=== PATIENT | male | born 1960 | race Caucasian/White ===

== ENCOUNTER 2016-05-25 07:17 | Emergency (ER) | payer BC ==
[~2016-05-25] VITALS: Ht 175.3 cm; Wt 94.4 kg
[~2016-05-25 07:17] MED LIST: ALBU8I INH; AMLO2.5T PO; AMLO5TAB22 PO; MONT10TA2 PO; TEST1INJ3 IM
[2016-05-25 07:26] VITALS: BP 151/108; PULSE 110; RESP 18; TEMP 98.3; O2SAT 100
[2016-05-25] MEDS ORDERED: LORazepam 2 MG/ML VIAL IV PUSH ONE (07:45)
--- NOTE | 2016-05-25 07:47 | PD ---
HPI . Hypertension Chief Complaint: Hypertension Time Seen by Provider: 07:34 Travel History International Travel<30 days: No Contact w/Intl Traveler<30days: No History of Present Illness HPI Patient presents with the chief complaint of high blood pressure. He states that he can feel his heart beating on his body. This happens to him periodically. It happened during the middle of the night last night. He took an extra half dose of lisinopril. He presents this morning complaining with continued symptoms. He denies chest pain, headache, shortness of breath, peripheral edema. PFSH Past Medical History Diminished Hearing: No Hypertension: Yes Respiratory: Yes (HX OF PE) Past Surgical History Other Surgery: Yes (big toe joint replacment bilat) Social History Alcohol Use: Yes (6 PACK A DAY) Tobacco Use: No Substance Use: No Allergies-Medications (Allergen,Severity, Reaction): Coded Allergies: No Known Allergies (Unverified , 12/01/12) Reported Meds & Prescriptions Reported Meds & Active Scripts Active Metoprolol Succinate ER 24 HR (Metoprolol Succinate) 25 Mg Tab 12.5 Mg PO DAILY Reported Garlic 400 Mg Tab Aspirin 325 Mg Tab 325 Mg PO TWICE WEEKLY Hydrocodone-Acetaminophen 10-325 mg Tab 1 Tab PO Q6H PRN Lisinopril 40 Mg Tab 40 Mg PO DAILY Review of Systems Except as stated in HPI: all other systems reviewed are Neg General / Constitutional: No: Fever, Chills Eyes: No: Blurred Vision HENT: No: Headaches Cardiovascular: Positive: Palpitations, No: Chest Pain or Discomfort Respiratory: No: Shortness of Breath Musculoskeletal: Positive: Pain (chronic low back pain), No: Edema Physical Exam Narrative GENERAL: Awake and alert and in no acute distress. SKIN: Warm and dry. HEAD: Atraumatic. Normocephalic. EYES: Pupils equal and round. ENT: No nasal bleeding or discharge. Mucous membranes pink and moist. NECK: Trachea midline. Neck is supple. CARDIOVASCULAR: Regular rate and rhythm. Heart sounds are normal. RESPIRATORY: No accessory muscle use. Lungs are clear with full air movement throughout. GASTROINTESTINAL: Abdomen soft, non-tender, nondistended. MUSCULOSKELETAL: No obvious deformities. No edema. NEUROLOGICAL: Awake and alert. No obvious cranial nerve deficits. Motor grossly within normal limits. Normal speech. PSYCHIATRIC: Appropriate mood and affect; insight and judgment normal. Data Data Last Documented VS Vital Signs Date Time Temp Pulse Resp B/P Pulse Ox O2 Delivery O2 Flow Rate FiO2 05/25/16 09:13 88 18 128/84 98 Room Air 05/25/16 07:26 98.3 Orders Lorazepam Inj (Ativan Inj) (05/25/16 07:45) Basic Metabolic Panel (Bmp) (05/25/16 07:50) Ckmb (Isoenzyme) Profile (05/25/16 07:50) Complete Blood Count With Diff (05/25/16 07:50) D-Dimer (05/25/16 07:50) Troponin I (05/25/16 07:50) Chest, Single Ap (05/25/16 07:50) Ecg Monitoring (05/25/16 07:50) Iv Access Insert/Monitor (05/25/16 07:50) Oximetry (05/25/16 07:50) Sodium Chloride 0.9% Flush (Ns Flush) (05/25/16 08:00) CKMB (05/25/16 08:20) CKMB% (05/25/16 08:20) Labs Laboratory Tests Test 05/25/16 08:20 White Blood Count 10.6 TH/MM3 Red Blood Count 5.01 MIL/MM3 Hemoglobin 16.9 GM/DL Hematocrit 49.8 % Mean Corpuscular Volume 99.3 FL Mean Corpuscular Hemoglobin 33.6 PG Mean Corpuscular Hemoglobin 33.8 % Concent Red Cell Distribution Width 11.3 % Platelet Count 182 TH/MM3 Mean Platelet Volume 8.0 FL Neutrophils (%) (Auto) 85.8 % Lymphocytes (%) (Auto) 6.9 % Monocytes (%) (Auto) 3.2 % Eosinophils (%) (Auto) 0.8 % Basophils (%) (Auto) 3.3 % Neutrophils # (Auto) 9.1 TH/MM3 Lymphocytes # (Auto) 0.7 TH/MM3 Monocytes # (Auto) 0.3 TH/MM3 Eosinophils # (Auto) 0.1 TH/MM3 Basophils # (Auto) 0.4 TH/MM3 CBC Comment DIFF FINAL Differential Comment D-Dimer Quantitative (PE/DVT) 0.46 MG/L FEU Sodium Level 136 MEQ/L Potassium Level 4.2 MEQ/L Chloride Level 103 MEQ/L Carbon Dioxide Level 24.1 MEQ/L Anion Gap 9 MEQ/L Blood Urea Nitrogen 9 MG/DL Creatinine 0.79 MG/DL Estimat Glomerular Filtration 103 ML/MIN Rate Random Glucose 143 MG/DL Calcium Level 8.9 MG/DL Total Creatine Kinase 102 U/L Creatine Kinase MB LESS THAN 0.5 NG/ML Troponin I LESS THAN 0.02 NG/ML MDM Medical Decision Making Medical Screen Exam Complete: Yes Emergency Medical Condition: Yes Medical Record Reviewed: Yes (the patient generally comes in for treatment of low back pain.) Interpretation(s) EKG shows a sinus rhythm. Ventricular rate is 102. The computer reads the EKG as possible acute lateral infarct. However, this EKG is unchanged from previous. Differential Diagnosis Differential diagnosis of palpitations includes but is not limited to anxiety, SVT, aVF with RVR, VT, sinus tachycardia Narrative Course Patient presents stating that he can feel his heart beat in his body. I will give him a dose of Ativan and observe him. The patient visibly looks better following the Ativan. He states that he is no longer feeling his heart beat in his body. CBC & BMP Diagram 05/25/16 08:20 Cardiac enzymes are negative. CXR interpretation: "No acute cardiopulmonary abnormality is identified." The chest x-ray was independently viewed by me. D-dimer is normal. Diagnosis Primary Impression: Hypertension Qualified Code: I10 - Essential hypertension Referrals: Adams Burger MD PhD 1 week Patient Instructions: Chronic Hypertension (DC), General Instructions Additional Instructions: Continue your lisinopril. Add metoprolol. Keep a log of your blood pressures and take this with you to see your doctor next week in follow-up. Scripts Metoprolol Succinate ER 24 HR 25 Mg Tab12.5 Mg PO DAILY #30 TAB Ref 0 Prov:Marci Calix MD 05/25/16 Disposition: DISCHARGE HOME Condition: Stable Marci Calix MD May 25, 2016 07:46
[2016-05-25 07:51] VITALS: O2SAT 98
[2016-05-25] MEDS ORDERED: LISI40TA PO (07:56)
[2016-05-25] MEDS ORDERED: HYDR-3583 PO (07:56)
[2016-05-25] MEDS ORDERED: ASPI325T PO (07:56)
[2016-05-25] MEDS ORDERED: GARL400T (07:56)
[2016-05-25] MEDS ORDERED: SODIUM CHLORIDE 0.9% FLUSH 5 ML FLUSH IVF PRN (08:00)
[2016-05-25 08:31] LABS: AUTOMATED NEUTROPHIL # 9.1 TH/MM3 (1.8-7.7); BASOPHIL # 0.4 TH/MM3 (0-0.2); BASOPHIL % 3.3 % (0.0-2.0); EOSINOPHIL # 0.1 TH/MM3 (0-0.4); EOSINOPHIL % 0.8 % (0.0-4.0); HEMATOCRIT 49.8 % (39.0-51.0); HEMO FLAGS DIFF FINAL; LYMPH % 6.9 % (9.0-44.0); LYMPHOCYTE # 0.7 TH/MM3 (1.0-4.8); MEAN CELL VOLUME 99.3 FL (80.0-100.0); MEAN CORPUSCULAR HEMOGLOBIN 33.6 PG (27.0-34.0); MEAN CORPUSCULAR HGB CONC 33.8 % (32.0-36.0); MONO % 3.2 % (0.0-8.0); NEUT % 85.8 % (16.0-70.0); PLATELET COUNT 182 TH/MM3 (150-450); RED BLOOD COUNT 5.01 MIL/MM3 (4.50-5.90); RED CELL DISTRIBUTION WIDTH 11.3 % (11.6-17.2); WHITE BLOOD COUNT 10.6 TH/MM3 (4.0-11.0)
[2016-05-25] MEDS ORDERED: METO25TA6 PO (08:35)
[2016-05-25 08:40] LABS: CHLORIDE 103 MEQ/L (98-107); POTASSIUM 4.2 MEQ/L (3.5-5.1); SODIUM (NA) 136 MEQ/L (136-145)
[2016-05-25 08:43] LABS: ANION GAP 9 MEQ/L (5-15); BICARBONATE 24.1 MEQ/L (21.0-32.0); BLOOD UREA NITROGEN 9 MG/DL (7-18)
[2016-05-25 08:46] LABS: GLOMERULAR FILTRATION RATE 103 ML/MIN (>89)
[2016-05-25 08:49] LABS: CREATINE KINASE 102 U/L (39-308)
[2016-05-25 09:02] LABS: CKMB LESS THAN 0.5 NG/ML (0.5-3.6)
[2016-05-25 09:13] VITALS: BP 128/84; PULSE 88; RESP 18; O2SAT 98
--- NOTE | 2016-05-25 09:15 | RADHPO ---
EXAM DATE/TIME: 05/25/2016 07:57 [facility] COMPARISON: CHEST PA & LAT, December 19, 2013, 10:53. INDICATIONS : Hypertension. Heart palpitations. MEDICAL HISTORY : Hypertension. Deep venous thrombosis. SURGICAL HISTORY : None. ENCOUNTER: Initial ACUITY: 2 days PAIN SCORE: 0/10 LOCATION: chest FINDINGS: Portable AP view of the chest demonstrates a normal-sized cardiac silhouette. No effusion, consolidat ion, or pneumothorax is visualized. The bones and soft tissues demonstrate no acute abnormality. CONCLUSION: No acute cardiopulmonary abnormality is identified. Bret Bermudez MD on May 25, 2016 at 9:11 Board Certified Radiologist. This report was verified electronically.
[2016-05-25] MEDS ORDERED: LORA-475 PO (09:37)
--- NOTE | 2016-05-26 07:08 | EKG ---
Date Performed: 05/25/2016 Time Performed: 07:29:46 PTAGE: 55 years EKG: CONSIDER ACUTE ST ELEVATION VT Sinus tachycardia Short OK interval Inferior ST elev ation, CONSIDER ACUTE INFARCT Abnormal ECG PREVIOUS TRACING : 12/19/2013 11.52 DOCTOR: Barney Alvarez Interpretating Date/Time 05/26/2016 07:06:30
== END 2016-05-25 09:48 | disposition home or self-care (01) ==
LOC: PHED 07:17
DX: I10 Essential (primary) hypertension (principal); R94.31 Abnormal electrocardiogram [ECG] [EKG]; Z86.711 Personal history of pulmonary embolism
CPT/HCPCS: 71010; 80048; 82550; 82552; 84484; 85025; 85379; 93005; 96374; 99284; J2060

== ENCOUNTER 2017-01-10 15:37 | Emergency (ER) | payer BC ==
[~2017-01-10 15:37] MED LIST changes: -ALBU8I INH; -AMLO2.5T PO; -AMLO5TAB22 PO; +ASPI325T PO; +GARL400T; +HYDR-3583 PO; +LISI40TA PO; +LORA-475 PO; +METO25TA6 PO; -MONT10TA2 PO; -TEST1INJ3 IM
[2017-01-10] MEDS ORDERED: SODIUM CHLORIDE 0.9% FLUSH 10 ML FLUSH IVF PRN (16:00)
[2017-01-10 16:13] VITALS: BP 168/99; PULSE 118; RESP 19; TEMP 99.1; O2SAT 97
[2017-01-10] MEDS ORDERED: ASPIRIN 81 MG CHEW TAB CHEW ONE (16:15)
[2017-01-10] MEDS ORDERED: LORazepam 2 MG/ML VIAL IV PUSH ONE (16:15)
--- NOTE | 2017-01-10 16:15 | PD ---
HPI Chief Complaint: Hypertension Time Seen by Provider: 16:00 Travel History International Travel<30 days: No Contact w/Intl Traveler<30days: No Traveled to known affect area: No History of Present Illness HPI 56-year-old male with history of hypertension presents to the emergency department with reports of pressure type headache, and palpitations which she felt were a result of his blood pressure being elevated. Patient normally currently takes metoprolol, lisinopril, and amlodipine once daily in the morning. Patient states a history of waking up from a nap prior to going to work, when he felt this pressure in his head and some palpitations. He denies chest pain, nausea, vomiting, or other symptoms. Patient states he took an extra dose of his metoprolol but his blood pressure when he checked it was 186/110. Pulse is noted to be in the 120s and regular. Patient states no history of heart attack, and reportedly had a normal stress test in the last 6 months. Patient is under a tremendous amount of stress lately, and admits to drinking 8-12 beers daily for years. Patient denies withdrawal from alcohol, but states he hasn't ever not drank. He is not intoxicated at this time. Patient denies any significant pain at time of exam. He has no known drug allergies. PFSH Past Medical History Hx Anticoagulant Therapy: No Cardiovascular Problems: Yes Diminished Hearing: No Deep Vein Thrombosis: Yes Hypertension: Yes Respiratory: Yes (HX OF PE) Past Surgical History Other Surgery: Yes (big toe joint replacment bilat) Social History Alcohol Use: Yes (6 PACK A DAY or more) Tobacco Use: No Substance Use: No Allergies-Medications (Allergen,Severity, Reaction): Coded Allergies: No Known Allergies (Unverified , 12/01/12) Reported Meds & Prescriptions Reported Meds & Active Scripts Active Ativan (Lorazepam) 2 Mg Tab 2 Mg PO DAILY PRN Metoprolol Succinate ER 24 HR (Metoprolol Succinate) 25 Mg Tab 12.5 Mg PO DAILY Reported Aspirin 325 Mg Tab 325 Mg PO TWICE WEEKLY Hydrocodone-Acetaminophen 10-325 mg Tab 1 Tab PO Q6H PRN Lisinopril 40 Mg Tab 40 Mg PO DAILY Review of Systems Except as stated in HPI: all other systems reviewed are Neg General / Constitutional: No: Fever Eyes: No: Visual changes HENT: No: Headaches Cardiovascular: Positive: Chest Pain or Discomfort (pressure only no pain), Tachycardia, No: Palpitations, Irregular Rhythm, Diaphoresis, Syncope, Dyspnea on exertion, Varicosities, Edema, Cyanosis, Varicosities, Phlebitis, Claudication Respiratory: No: Cough, Shortness of Breath, Wheezing Gastrointestinal: No: Nausea, Vomiting, Diarrhea, Abdominal Pain Genitourinary: No: Dysuria Musculoskeletal: No: Pain Skin: No Rash Neurologic: No: Weakness Psychiatric: No: Depression Endocrine: No: Polydipsia Hematologic/Lymphatic: No: Easy Bruising Physical Exam Narrative GENERAL: Patient appears in no acute distress. SKIN: Warm and dry. Normal color. Normal turgor. No rash. No diaphoresis. HEAD: Atraumatic. Normocephalic. EYES: Pupils equal and round. No scleral icterus. No injection or drainage. ENT: No nasal bleeding or discharge. Mucous membranes pink and moist. Pharynx is clear. Airway is patent. NECK: Trachea midline. No JVD. Supple and nontender. CARDIOVASCULAR: Tachycardic rate and regular rhythm. RESPIRATORY: No accessory muscle use. Clear to auscultation. Breath sounds equal bilaterally. MUSCULOSKELETAL: Extremities without clubbing, cyanosis, or edema. No obvious deformities. NEUROLOGICAL: Awake and alert. No obvious cranial nerve deficits. Motor grossly within normal limits. Five out of 5 muscle strength in the arms and legs. Normal speech. PSYCHIATRIC: Appropriate mood and affect; insight and judgment normal. Data Data Last Documented VS Vital Signs Date Time Temp Pulse Resp B/P (MAP) Pulse Ox O2 Delivery O2 Flow Rate FiO2 01/10/17 17:09 141/90 (107) 01/10/17 17:00 89 14 99 Room Air 01/10/17 16:13 99.1 Orders Orders Electrocardiogram (01/10/17 16:00) Ckmb (Isoenzyme) Profile (01/10/17 16:00) Complete Blood Count With Diff (01/10/17 16:00) Comprehensive Metabolic Panel (01/10/17 16:00) Magnesium (Mg) (01/10/17 16:00) Prothrombin Time / Inr (Pt) (01/10/17 16:00) Act Partial Throm Time (Ptt) (01/10/17 16:00) Troponin I (01/10/17 16:00) Chest, Single Ap (01/10/17 16:00) Ecg Monitoring (01/10/17 16:00) Bilateral Bp Monitoring (01/10/17 16:00) Iv Access Insert/Monitor (01/10/17 16:00) Oximetry (01/10/17 16:00) Oxygen Administration (01/10/17 16:00) Sodium Chloride 0.9% Flush (Ns Flush) (01/10/17 16:00) Aspirin Chew (Aspirin Chew) (01/10/17 16:15) Lorazepam Inj (Ativan Inj) (01/10/17 16:15) Sodium Chlorid 0.9% 500 Ml Inj (Ns 500 M (01/10/17 16:30) Metoprolol Tartrate Inj (Lopressor Inj) (01/10/17 16:30) CKMB (01/10/17 16:10) CKMB% (01/10/17 16:10) Potassium Chloride (Kcl) (01/10/17 18:00) Labs Laboratory Tests Test 01/10/17 16:10 White Blood Count 9.1 TH/MM3 Red Blood Count 4.29 MIL/MM3 Hemoglobin 15.7 GM/DL Hematocrit 43.3 % Mean Corpuscular Volume 100.7 FL Mean Corpuscular Hemoglobin 36.5 PG Mean Corpuscular Hemoglobin Concent 36.3 % Red Cell Distribution Width 13.0 % Platelet Count 162 TH/MM3 Mean Platelet Volume 7.5 FL Neutrophils (%) (Auto) 79.5 % Lymphocytes (%) (Auto) 11.9 % Monocytes (%) (Auto) 7.8 % Eosinophils (%) (Auto) 0.4 % Basophils (%) (Auto) 0.4 % Neutrophils # (Auto) 7.2 TH/MM3 Lymphocytes # (Auto) 1.1 TH/MM3 Monocytes # (Auto) 0.7 TH/MM3 Eosinophils # (Auto) 0.0 TH/MM3 Basophils # (Auto) 0.0 TH/MM3 CBC Comment AUTO DIFF Differential Comment AUTO DIFF CONFIRMED Prothrombin Time 11.3 SEC Prothromb Time International Ratio 1.0 RATIO Activated Partial Thromboplast Time 22.0 SEC Blood Urea Nitrogen 8 MG/DL Creatinine 0.74 MG/DL Random Glucose 91 MG/DL Total Protein 7.4 GM/DL Albumin 3.9 GM/DL Calcium Level 8.9 MG/DL Magnesium Level 2.1 MG/DL Alkaline Phosphatase 81 U/L Aspartate Amino Transf (AST/SGOT) 54 U/L Alanine Aminotransferase (ALT/SGPT) 64 U/L Total Bilirubin 1.5 MG/DL Sodium Level 131 MEQ/L Potassium Level 3.4 MEQ/L Chloride Level 95 MEQ/L Carbon Dioxide Level 25.7 MEQ/L Anion Gap 10 MEQ/L Estimat Glomerular Filtration Rate 110 ML/MIN Total Creatine Kinase 126 U/L Creatine Kinase MB 0.8 NG/ML Troponin I LESS THAN 0.02 NG/ML MDM Medical Decision Making Medical Screen Exam Complete: Yes Emergency Medical Condition: Yes Medical Record Reviewed: Yes Differential Diagnosis Hypertensive crisis. Anxiety. Tachycardia. Cardiac syndrome. Electrolyte imbalance. Narrative Course EKG shows sinus tachycardia without ST-T changes suggestive of NH. This is reviewed with Dr. Godfrey. Labs ordered including CBC, CMP, cardiac panel, and chest x-ray. Chest x-ray is negative for acute process per radiologist. CBC is unremarkable. CMP shows sodium slightly low at 131, potassium is 3.4. Chloride is 94. Otherwise no Significant findings. Troponin is negative at 0.02. Patient was given 500 mL normal saline bolus, 324 mg aspirin, and 1 mg lorazepam IV, as well as 5 mg metoprolol IV. Patient is monitored and felt that his symptoms are improved. He is requesting to go home. Patient is discussed with Dr. Godfrey feels the patient is stable for discharge. Patient is to continue his current blood pressure medications and follow with his primary care physician in the next several days. Patient can return the emergency Department with worsening symptoms as needed. Patient was cautioned to decrease his alcohol intake as this could be exacerbating some of the symptoms. Diagnosis Primary Impression: Hypertension Qualified Codes: I10 - Essential (primary) hypertension Referrals: Primary Care Physician Patient Instructions: 2 Gram Sodium Diet (DC), Abuse of Alcohol (ED), General Instructions, Potassium Content of Foods List (ED) Additional Instructions: Patient is discussed with Dr. Godfrey feels the patient is stable for discharge. Patient is to continue his current blood pressure medications and follow with his primary care physician in the next several days. Patient can return the emergency Department with worsening symptoms as needed. Patient was cautioned to decrease his alcohol intake as this could be exacerbating some of the symptoms. Med/Other Pt SpecificInfo: No Change to Meds Disposition: 01 DISCHARGE HOME Condition: Stable Juanjo Aguilar F. PA Jan 10, 2017 16:15
--- NOTE | 2017-01-10 16:26 | RADRPT ---
EXAM DATE/TIME: 01/10/2017 16:08 [facility] COMPARISON: CHEST SINGLE AP, May 25, 2016, 7:57. INDICATIONS : High blood pressure. MEDICAL HISTORY : hx of 2 dvt's in his lungs SURGICAL HISTORY : None. ENCOUNTER: Initial ACUITY: 1 day PAIN SCORE: 0/10 LOCATION: Bilateral chest FINDINGS: A single view of the chest demonstrates the lungs to be symmetrically aerated without evidence of mas s, infiltrate or effusion. The cardiomediastinal contours are unremarkable. Osseous structures are intact. CONCLUSION: No acute disease. Valentin Galindo MD on January 10, 2017 at 16:24 Board Certified Radiologist. This report was verified electronically.
[2017-01-10] MEDS ORDERED: SODIUM CHLORID 0.9% 500 ML INJ 500 ML IV ONE (16:30)
[2017-01-10] MEDS ORDERED: METOPROLOL TARTRATE 5 MG/5 ML VIAL IV PUSH ONE (16:30)
[2017-01-10 16:38] LABS: AUTOMATED NEUTROPHIL # 7.2 TH/MM3 (1.8-7.7); BASOPHIL % 0.4 % (0.0-2.0); EOSINOPHIL % 0.4 % (0.0-4.0); HEMATOCRIT 43.3 % (39.0-51.0); LYMPH % 11.9 % (9.0-44.0); LYMPHOCYTE # 1.1 TH/MM3 (1.0-4.8); MEAN CELL VOLUME 100.7 FL (80.0-100.0); MEAN CORPUSCULAR HEMOGLOBIN 36.5 PG (27.0-34.0); MONO % 7.8 % (0.0-8.0); NEUT % 79.5 % (16.0-70.0); PLATELET COUNT 162 TH/MM3 (150-450); RED BLOOD COUNT 4.29 MIL/MM3 (4.50-5.90); WHITE BLOOD COUNT 9.1 TH/MM3 (4.0-11.0)
[2017-01-10 16:47] LABS: PROTHROMBIN TIME - PATIENT 11.3 SEC (9.8-11.6)
[2017-01-10 16:48] LABS: HEMO FLAGS AUTO DIFF; MEAN CORPUSCULAR HGB CONC 36.3 % (32.0-36.0)
[2017-01-10 17:00] VITALS: BP 149/91; PULSE 89; RESP 14; O2SAT 99
[2017-01-10 17:02] LABS: ALT (GPT) 64 U/L (12-78); ANION GAP 10 MEQ/L (5-15); AST (GOT) 54 U/L (15-37); BICARBONATE 25.7 MEQ/L (21.0-32.0); BLOOD UREA NITROGEN 8 MG/DL (7-18); CHLORIDE 95 MEQ/L (98-107); GLOMERULAR FILTRATION RATE 110 ML/MIN (>89); MAGNESIUM 2.1 MG/DL (1.5-2.5); POTASSIUM 3.4 MEQ/L (3.5-5.1); SODIUM (NA) 131 MEQ/L (136-145)
[2017-01-10 17:06] LABS: ALKALINE PHOSPHATASE 81 U/L (45-117); CREATINE KINASE 126 U/L (39-308); TOTAL BILIRUBIN ADULT 1.5 MG/DL (0.2-1.0)
[2017-01-10 17:09] VITALS: BP 141/90
[2017-01-10 17:19] LABS: CKMB 0.8 NG/ML (0.5-3.6)
[2017-01-10 17:54] LABS: SCAN/DIFF AUTO DIFF CONFIRMED
[2017-01-10] MEDS ORDERED: POTASSIUM CHLORIDE 10 MEQ CONTROLLED RELEASE TAB PO ONE (18:00)
--- NOTE | 2017-01-11 09:48 | EKG ---
Date Performed: 01/10/2017 Time Performed: 16:09:55 PTAGE: 56 years EKG: SINUS TACHYCARDIA Inferior infarct of indeterminate age ABNORMAL RHYTHM ECG PREVIOUS TRACING : 05/25/2016 07.29 Compared to prior tracing no significant change DOCTOR: Donte Alvarenga Interpretating Date/Time 01/11/2017 09:46:38
== END 2017-01-10 18:45 | disposition home or self-care (01) ==
LOC: NEPC 15:37
DX: I10 Essential (primary) hypertension (principal); R51 Headache; R00.2 Palpitations; R94.31 Abnormal electrocardiogram [ECG] [EKG]; Z86.718 Personal history of other venous thrombosis and embolism
CPT/HCPCS: 71010; 80053; 82550; 82552; 83735; 84484; 85025; 85610; 85730; 93005; 96361; 96374; 96375; 99285; J2060; J7040